=== PATIENT | female | born 1940 | race Caucasian/White ===

== ENCOUNTER 2024-11-16 07:18 | Day surgery (SDC) | payer MEDICARE, OTHER ==
[2024-11-16] MEDS ORDERED: Lidocaine 2% 5 ML SDV ONE (07:19)
[2024-11-16] MEDS ORDERED: Propofol 200 MG/20 ML SDV IV ONE (07:19)
[2024-11-16] MEDS ORDERED: Lidocaine 2% 100 MG/5 ML Syringe IVPUSH ONE (07:19)
[2024-11-16] MEDS ORDERED: Sodium Chloride 0.9% 10 ML Syringe FLUSH PRN (07:30)
[2024-11-16] MEDS: Lactated Ringers 1,000 ML IV SCH (08:09)
== END 2024-11-16 10:17 | disposition home or self-care (01) ==
LOC: FB.SDS 07:18
PROVIDERS: ATTEND Surgery
DX: K31.7 Polyp of stomach and duodenum (principal); K21.9 Gastro-esophageal reflux disease without esophagitis; K44.9 Diaphragmatic hernia without obstruction or gangrene; E78.5 Hyperlipidemia, unspecified
CPT/HCPCS: 00731; 88305; 99100; J2003; J2704; J7120